=== PATIENT | male | born 1980 ===

== ENCOUNTER 2019-02-27 06:46 | Emergency (ER) | payer MEDICAID, OTHER ==
[2019-02-27 07:05] VITALS: TEMP 97.7
--- NOTE | 2019-02-27 07:41 | ED PDOC ---
HPI: Chest Pain Time Seen by Provider: 02/27/19 07:09 Chief Complaint (Nursing): Chest Pain Chief Complaint (Provider): Chest Pain History Per: Patient History/Exam Limitations: no limitations Onset/Duration Of Symptoms: Days (4) Additional Complaint(s): 38 y/o male presents to the ED complaining of not being able to sleep for 4 days. Patient states not that he isnt able to sleep but just did not sleep for 4 days. Patient reports he is afraid hes going to stop breathing when he goes to sleep or have a convulsion and now admits he now wants to go to sleep sine he doesnt sleep day or night. He admits he forgets to sleep due to constantly over-thinking of things and states he suffers from obsessive thoughts. Patient states he has not seen a doctor for 10 years and now is here to make sure everything is okay. Patient report since he smokes he thinks he has sleep apnea and asthma. Patient denies chest pain or any difficulty breathing. Patient was in the room with mother and requested for her to stay. PMD: None provided Past Medical History Reviewed: Historical Data, Nursing Documentation, Vital Signs Vital Signs: Last Vital Signs Temp 97.7 F 02/27/19 07:03 Pulse 86 02/27/19 07:03 Resp 16 02/27/19 07:03 BP 144/89 02/27/19 07:03 Pulse Ox 97 02/27/19 07:03 Primary Care Provider: FAMILY PROVIDER,NO - Medical History PMH: Asthma, Sleep Apnea - Surgical History Surgical History: No Surg Hx - Family History Family History: States: No Known Family Hx, Unknown Family Hx - Social History Current smoker - smoking cessation education provided: Yes Alcohol: Social Drugs: Other (Drugs use in the past. ) - Home Medications Home Medications: Ambulatory Orders Medication Instructions Recorded Ibuprofen [Motrin] 600 mg PO Q6H PRN #20 tab 07/23/16 - Allergies Allergies/Adverse Reactions: Allergies Allergy/AdvReac Type Severity Reaction Status Date / Time No Known Allergies Allergy Verified 07/23/16 14:50 Review of Systems ROS Statement: Except As Marked, All Systems Reviewed And Found Negative Psych: Positive for: Other ((-) Homicidal ideation.). Negative for: Suicidal ideation Physical Exam - Reviewed Nursing Documentation Reviewed: Yes Vital Signs Reviewed: Yes - Physical Exam Appears: Positive for: Well (Patient is obese.), Non-toxic, No Acute Distress. Negative for: Uncomfortable Head Exam: Positive for: ATRAUMATIC, NORMAL INSPECTION, NORMOCEPHALIC Skin: Positive for: Normal Color, Warm, Dry Eye Exam: Positive for: EOMI, Normal appearance, PERRL ENT: Positive for: Normal ENT Inspection Neck: Positive for: Normal, Painless ROM, Supple Cardiovascular/Chest: Positive for: Regular Rate, Rhythm. Negative for: Murmur Respiratory: Positive for: Normal Breath Sounds. Negative for: Wheezing Gastrointestinal/Abdominal: Positive for: Normal Exam, Soft. Negative for: Tenderness Back: Positive for: Normal Inspection. Negative for: L CVA Tenderness, R CVA Tenderness Extremity: Positive for: Normal ROM Neurological/Psych: Positive for: Awake, Alert, Normal Tone, Oriented (x3), Other (calm.). Negative for: Motor/Sensory Deficits - Laboratory Results Result Diagrams: 02/27/19 07:48 02/27/19 07:48 - ECG O2 Sat by Pulse Oximetry: 97 - Progress Re-evaluation Time: 12:24 Condition: Re-examined, Improved Medical Decision Making Medical Decision Making: Time: 728 Initial Impression: Insomnia, PND. Bipolar disorder, obsesive disorder. Rule out cardiac and pulmonary conditions for medical clearance. Initial Plan: -EKG -Alcohol serum -B-type -BMP -Drug screen -Troponin -CBC -Chest x-ray 1200 Patient has been evaluated and cleared by crisis for discharge. Scribe Attestation: Documented by Marcella Mccollum, acting as a scribe for Leta Sherman. Provider Scribe Attestation: All medical record entries made by the Scribe were at my direction and personally dictated by me. I have reviewed the chart and agree that the record accurately reflects my personal performance of the history, physical exam, medical decision making, and the department course for this patient. I have also personally directed, reviewed, and agree with the discharge instructions and disposition. Disposition - Clinical Impression Clinical Impression: Substance abuse, Sleep apnea, Insomnia - Patient ED Disposition Is Patient to be Admitted: No Doctor Will See Patient In The: Office Counseled Patient/Family Regarding: Studies Performed, Diagnosis, Need For Followup - Disposition Referrals: [facility] [Outside] Disposition: Routine/Home Disposition Time: 12:24 Condition: GOOD Additional Instructions: [facility], thank you for letting us take care of you today. Your provider was Leta Sherman MD and you were treated for UNABLE TO SLEEP. The emergency medical care you received today was directed at your acute symptoms. If you were prescribed any medication, please fill it and take as directed. It may take several days for your symptoms to resolve. Return to the Emergency Department if your symptoms worsen, do not improve, or if you have any other problems. Please contact your doctor or call one of the physicians/clinics you have been referred to that are listed on the Patient Visit Information form that is in cluded in your discharge packet. Bring any paperwork you were given at discharge with you along with any medications you are taking to your follow up visit. Our treatment cannot replace ongoing medical care by a primary care provider outside of the emergency department. Thank you for allowing the [facility] team to be part of your care today. If you had an X-Ray or CT scan: A Radiologist will review the ED reading if any change in treatment is needed we will contact you. If you had a blood, urine, or wound culture: It will take several days for the results, if any change in treatment is needed we will contact you. Instructions: Sleep Apnea, Insomnia, Polysubstance Abuse Forms: [employer] ([place])
--- NOTE | 2019-02-27 07:48 | RAD ---
Date of service: 02/27/2019 HISTORY: dyspnea COMPARISON: No prior. TECHNIQUE: Chest PA and lateral views FINDINGS: LUNGS: No active pulmonary disease. PLEURA: No significant pleural effusion identified. No pneumothorax apparent. CARDIOVASCULAR: No aortic atherosclerotic calcification present. Normal cardiac size. No pulmonary vascular congestion. OSSEOUS STRUCTURES: No significant abnormalities. VISUALIZED UPPER ABDOMEN: Normal. OTHER FINDINGS: None. IMPRESSION: No acute cardiopulmonary disease appreciated.
[2019-02-27 07:58] LABS: BASO # 0.1 K/uL (0.0-0.2); BASO % 0.8 % (0.0-2.0); EOS # 0.5 K/uL (0.0-0.7); EOS % 5.1 % (0.0-4.0); HEMOGLOBIN 16.5 g/dL (12.0-18.0); LYMPH # 1.6 K/uL (1.0-4.3); MEAN CELL VOLUME 95.9 fl (80.0-94.0); MEAN CORPUSCULAR HEMOGLOBIN 33.7 pg (27.0-31.0); MEAN CORPUSCULAR HGB CONC 35.2 g/dL (33.0-37.0); MEAN PLATELET VOLUME 7.9 fl (7.2-11.7); MONO # 0.7 K/uL (0.0-0.8); MONO % 7.3 % (0.0-10.0); NEUT # 6.9 K/uL (1.8-7.0); NEUT % 70.8 % (50.0-75.0); RBC 4.9 Mil/uL (4.40-5.90); RED CELL DISTRIBUTION WIDTH 13.1 % (11.5-14.5); WHITE BLOOD COUNT 9.8 K/uL (4.8-10.8)
[2019-02-27 08:22] LABS: BLOOD UREA NITROGEN 18 mg/dl (9-20); CALCIUM 9.2 mg/dL (8.4-10.2); GFR NON-AFRICAN AMERICAN > 60
[2019-02-27 08:32] LABS: BARBITURATES, UR NEGATIVE (NEGATIVE); BENZODIAZEPINES, UR NEGATIVE (NEGATIVE); OPIATES, UR NEGATIVE (NEGATIVE); PHENCYCLIDINE, UR POSITIVE (NEGATIVE)
[2019-02-27 08:50] LABS: B-TYPE NATRIURETIC PEPTIDE 20.9 pg/ml (0-450)
--- NOTE | 2019-02-27 09:18 | CARD ---
APPROVED REPORT Date of service: 02/27/2019 EKG Measurement Heart [id number] <Conclusion> Normal sinus rhythm Left axis deviation Abnormal ECG
[2019-02-27 12:34] VITALS: BP 132/82; PULSE 83; RESP 20
[2019-02-28 07:13] VITALS: O2SAT 97
== END 2019-02-27 12:25 | disposition home or self-care (01) ==
LOC: H.ER 06:46
DX: F19.10 Other psychoactive substance abuse, uncomplicated (principal); G47.30 Sleep apnea, unspecified; F17.200 Nicotine dependence, unspecified, uncomplicated; Z86.59 Personal history of other mental and behavioral disorders; J45.909 Unspecified asthma, uncomplicated; R56.9 Unspecified convulsions
CPT/HCPCS: 71046; 80048; 83880; 84484; 85025; 93005; 99285; G0480